=== PATIENT | male | born 1955 | race Caucasian/White ===

== ENCOUNTER 2016-09-26 10:49 | Emergency (ER) | payer OTHER ==
[~2016-09-26] VITALS: Ht 182.9 cm; Wt 90.7 kg
[~2016-09-26 10:49] MED LIST: ASPIRIN325 M2 PO; HYDROCODON-ACE1 EAC1 PO; NIFEDIPINE ER30 M1 PO; SYNTHROID150 MCG PO
--- NOTE | 2016-09-26 11:15 | ED GI/GU/ABDOMINAL COMPLAINT ---
History of Present Illness General Chief Complaint: Abdominal Pain/Flank Pain Stated Complaint: STOMACH PAIN APPROX 3 DAYS Source: patient Exam Limitations: no limitations Vital Signs & Intake/Output Vital Signs & Intake/Output Vital Signs Date Time Temp Pulse Resp B/P B/P Pulse O2 O2 Flow FiO2 Mean Ox Delivery Rate 09/26 1251 97.4 68 18 110/80 98 Room Air 09/26 1147 98 Room Air 09/26 1101 97.5 81 18 122/84 100 Room Air Allergies Coded Allergies: No Known Allergies (01/12/16) Triage Note: PT TO ED FOR INTERMITTENT ABD PAIN X SEVERAL WEEKS. REPORTING WORSE OVER THE PAST SEVERAL DAYS. DESCRIBES PAIN "EITHER I HAVE GAS, HAVE TO POOP OR IM HUNGRY. I CAN'T DISTINGUISH IT" DENIES NVD, CP, SOB, SY. HAD OUTPATIENT BLOODWORK YESTERDAY FOR SAME AND HAS OUTPATIENT US SCHEDULED WELL. Triage Nurses Notes Reviewed? yes Onset: Gradual Duration: getting worse Timing: recent history Severity Numbers: 5 Location: right upper quadrant Radiation: periumbilical Activities at Onset: none HPI: Patient is a 61-year-old male with past medical history of PE after surgical intervention remotely where he is currently on Xarelto, hypertension and hypothyroidism who presents emergency room with a 3 week history of initially intermittent right upper quadrant abdominal pain however no last 3 days the symptoms have been constant. Patient was evaluated by primary care doctor received outpatient blood work yesterday with unremarkable findings. Patient denies any worsening symptoms after eating or drinking fluids. Denies any significant NSAID use or alcohol use. Last bowel movement was . Denies any fever chills shortness of breath cough hemoptysis back pain dysuria hematuria nausea vomiting chest pain. (KVNG SCHWARTZ,HUSSEIN) Reconcile Medications Levothyroxine Sodium (Synthroid) 150 MCG TABLET 1 TAB PO DAILY THYROID ( Reported) Nifedipine (Nifedipine ER) 30 MG TABLET.ER 1 TAB PO DAILY BP (Reported) Rivaroxaban (Xarelto) 20 MG TABLET 20 BLOOD THINNER (Reported) (REGGIE SUTTON,ASH Ha) Past History Travel History Traveled to [place] past 21 day No Medical History Any Pertinent Medical History? see below for history Neurological: NONE EENT: NONE Cardiovascular: hypertension, PE Respiratory: NONE Gastrointestinal: NONE Hepatic: NONE Renal: NONE Musculoskeletal: NONE Psychiatric: NONE Endocrine: HYPOTHYROID Blood Disorders: NONE Cancer(s): NONE Surgical History Surgical History: meniscus repair Psychosocial History What is your primary language [place] Tobacco Use: Never used ETOH Use: occasional use Illicit Drug Use: denies illicit drug use Family History Hx Contributory? No (HUSSEIN ODOM) Review of Systems Review of Systems Constitutional: Reports: no symptoms. EENTM: Reports: no symptoms. Respiratory: Reports: no symptoms. Cardiovascular: Reports: no symptoms. GI: Reports: see HPI, abdominal pain. Denies: nausea. Genitourinary: Reports: no symptoms. Musculoskeletal: Reports: no symptoms. Skin: Reports: no symptoms. Neurological/Psychological: Reports: no symptoms. Hematologic/Endocrine: Reports: no symptoms. Immunologic/Allergic: Reports: no symptoms. All Other Systems: Reviewed and Negative (HUSSEIN ODOM) Physical Exam Physical Exam General Appearance: no apparent distress, alert, comfortable Gastrointestinal: normal bowel sounds, soft, MILD RUQ PAIN, NO REBOUND TENDERNESS , NO RLQ PAIN Comments: Well-developed well-nourished person in no acute distress HEENT: Normal EENT exam, Neck: Supple, no lymphadenopathy, normal range of motion without pain or tenderness Back: Nontender, no CVA tenderness. Cardiovascular: Regular rate and rhythms no murmurs rubs or gallops, normal JVP Respiratory: Chest nontender. No respiratory distress.breath sounds clear to auscultation bilaterally Extremity: No edema, no calf tenderness to palpation, normal and equal pulses. Neuro: Alert oriented x3, motor sensory normal, Skin: No appreciable rash on exposed skin, skin is warm and dry. Psych: Mood and affect is normal, memory and judgment is normal. Core Measures ACS in differential dx? No Severe Sepsis Present: No Septic Shock Present: No (HUSSEIN ODOM) Progress Differential Diagnosis: AAA, AMI, appendicitis, biliary colic, bowel obstruction , colon cancer, cholecystitis, diverticulitis, epididymitis, gastritis, hepatitis, hernia, hemorrhoids, ischemic bowel, inflamm bowel dis, orchitis, pancreatitis, prostatitis, peptic ulcer, PUD/GERD, perforated viscous, pyelonephritis, SBO, ureterolithiasis, urinary retention, UTI/pyelo Plan of Care: Orders Procedure Date/time Status LIPASE 09/26 1123 Complete DIRECT BILIRUBIN 09/26 1123 Complete COMPREHENSIVE METABOLIC PANEL 09/26 112 Complete CBC WITHOUT DIFFERENTIAL 09/26 112 Complete AMYLASE 09/26 1123 Complete Laboratory Tests 09/26/16 1137: Anion Gap 13, Estimated GFR > 60, BUN/Creatinine Ratio 13.3, Glucose 107 H, Calcium 9.7, Total Bilirubin 1.0, Direct Bilirubin 0.4, AST 31, ALT 39, Alkaline Phosphatase 252 H, Total Protein 7.5, Albumin 4.0, Globulin 3.5, Albumin/ Globulin Ratio 1.1, Amylase 80, Lipase 108, CBC w Diff NO MAN DIFF REQ, RBC 4.75 , MCV 87.4, MCH 28.5, RDW 12.2, MPV 7.6, Gran % 72.9, Lymphocytes % 14.1 L, Monocytes % 10.9 H, Eosinophils % 1.8, Basophils % 0.3, Absolute Granulocytes 6.6 H, Absolute Lymphocytes 1.3, Absolute Monocytes 1.0 H, Absolute Eosinophils 0.2, Absolute Basophils 0, PUBS MCHC 32.5 L Patient on initial examination was in no apparent distress afebrile was offered pain medications and declined Patient had unremarkable labs which I reviewed with patient and unremarkable ultrasound. Patient has no right lower quadrant pain my suspicion of appendicitis is low. Patient states that he has established GI Dr. Baires which I strongly advised patient to follow up with Upon discharge patient looks well no apparent distress and will comply with discharge instructions and had no questions (HUSSEIN ODOM) Initial ED EKG: none (HUSSEIN ODOM) Departure Departure Disposition: HOME OR SELF CARE Condition: Stable Clinical Impression Primary Impression: Abdominal pain Referrals: KHUSHBU SUTTON,SEN GARNICA MD,Kimani PARRA (PCP/Family) Additional Instructions: As discussed begin [id number] Tylenol for pain. If symptoms worsen return to the emergency room. If no better on Wednesday follow-up with your established fur operator Dr. Baires. Departure Forms: Customer Survey General Discharge Information (HUSSEIN ODOM) PA/RAIL MANAGER Co-Sign Statement Statement: ED Attending supervision documentation- [X] I saw and evaluated the patient. I have also reviewed all the pertinent lab results and diagnostic results. I agree with the findings and the plan of care as documented in the PA's/RAIL MANAGER's documentation. [X] I have reviewed the ED Record and agree with the PA's/RAIL MANAGER's documentation. [] Additions or exceptions (if any) to the PAs/RAIL MANAGER's note and plan are summarized below: [] (REGGIE SUTTON,ASH Ha)
[2016-09-26 11:46] LABS: ABSOLUTE BASOPHIL COUNT 0 /CUMM (0.0-0.2); ABSOLUTE EOSINOPHIL COUNT 0.2 /CUMM (0.0-0.7); ABSOLUTE GRANULOCYTE CT 6.6 /CUMM (1.4-6.5); ABSOLUTE LYMPH COUNT 1.3 /CUMM (1.2-3.4); BASOPHIL % 0.3 % (0.0-2.0); EOSINOPHIL % 1.8 % (0-5); GRANULOCYTE % 72.9 % (42.2-75.2); HEMATOCRIT 41.5 % (42-52); MEAN CORPUSCULAR HGB 28.5 PG (27.0-31.0); MEAN CORPUSCULAR HGB CONC 32.5 G/DL (33.0-37.0); MEAN CORPUSCULAR VOLUME 87.4 FL (80.0-94.0); MEAN PLATELET VOLUME 7.6 FL (7.4-10.4); PLATELET COUNT 296 /CUMM (130-400); RBC DISTRIBUTION WIDTH 12.2 % (11.5-14.5); RED BLOOD CELL CT 4.75 /CUMM (4.70-6.10)
--- NOTE | 2016-09-26 12:12 | ULTRASOUND REPORT ---
EXAMINATION: US ABDOMEN LIMITED CLINICAL INFORMATION: Right upper quadrant pain. COMPARISON: None TECHNIQUE: Real-time imaging of the right upper quadrant abdominal viscera. FINDINGS: PANCREAS: The pancreas is normal in size and contour. There is no pancreatic ductal distention or retroperitoneal effusion. LIVER: The liver is normal in size and smooth in contour. There is no visible hepatic parenchymal lesion or intrahepatic biliary ductal dilatation. GALLBLADDER: The gallbladder is normal in size and shows no sludge or stone. There is nonspecific thickening areola tissue between the gallbladder and liver but no gallbladder wall thickening is demonstrated circumferentially or pericholecystic fluid. COMMON BILE DUCT: Normal in caliber measuring 0.4 cm in diameter. RIGHT KIDNEY: Normal. No hydronephrosis. No renal calculi or focal parenchymal lesions. The kidney measures 11.4 cm in maximum dimension. FREE FLUID: None. IMPRESSION: 1. There is nonspecific thickening of the areola tissue between the gallbladder and the liver. Otherwise. Normal gallbladder. No stone, sludge, or wall thickening. 2. No right hydronephrosis. 3. Normal pancreas.
[2016-09-26] MEDS ORDERED: XARELTO20 M2 (12:34)
[2016-09-26 12:51] VITALS: BP 110/80
== END 2016-09-26 12:57 ==
LOC: ERH 10:49
PROVIDERS: Physician Assistant
DX: R10.11 Right upper quadrant pain (principal)